=== PATIENT | female | born 1995 | race Hispanic/Latino ===

== ENCOUNTER → 2016-07-05 | Outpatient (CLI) | payer OTHER ==
--- NOTE | 2016-07-05 15:10 | REP ---
Obstetric ultrasound for anatomy: There is a single intrauterine gestation in a breech presentation. There is movement and cardiac activity. The heart rate is 173 beats per minute. The placenta is anterior without previa or abruptio and with grade 0 maturity. The amniotic fluid volume subjectively is normal. The cervix is 3.0 cm length. Maternal adnexa and cul-de-sac are unremarkable. By today's measurements gestational age is 23 weeks 1 day with an SHOSHANA of 10/31/2016. The gestational age by LMP is 23 weeks 4 days. weight is 577 grams (1 pound, 4 ounces). This is a 34th percentile for 23 weeks 4 days. The the following anatomic structures are identified and are unremarkable: Intracranial lateral ventricles, cerebellum, cisterna magna, facial profile, upper lip, lungs, four-chamber heart, cardiac right and left ventricular outflow tracts, diaphragm, stomach, cord insertion, three-vessel cord, kidneys, bladder, and upper lower extremities. The spine is suboptimally demonstrated. A followup study dedicated to the spine might be considered. Otherwise, no anomalies are identified. Signed by Ricco Mcbride MD 07/05/2016 03:01 P
== END ==
LOC: M RAD 13:21
PROVIDERS: ATTEND Nurse Practitioner Women's Health
DX: Z36 Encounter for antenatal screening of mother (principal); Z3A.23 23 weeks gestation of pregnancy

== ENCOUNTER 2016-10-21 10:09 | Outpatient (CLI) | payer OTHER ==
[~2016-10-21] VITALS: Ht 154.9 cm; Wt 67.0 kg
[2016-10-21 10:23] VITALS: BP 115/75
[2016-10-21] MEDS ORDERED: PRENTAB9 PO (10:52)
--- NOTE | 2016-10-21 14:29 | IPN ---
DATE OF SERVICE: 10/21/2016 21-year-old 1, para 0, LMP 01/22/2016, EDC 10/28/2016 at 39 weeks of gestation with questionable ruptured membranes. Labs show B+, HIV negative, Hep negative, RPR negative, rubella immune. Varicella immune. Urine negative. Gonorrhea and chlamydia negative. 1-hour glucose was 114 and GBS is negative. She has no risk factors. On examination, symphysis fundus height is 39, vertex category 1 strip, 15 x 15 contraction acceleration to be variable to moderate 6-25. No decelerations. Cervix is closed, posterior thinning at 50%. No loss of fluid or vaginal discharge. Evaluation by ferning was negative. BV was negative Yeast was negative and Nitrazine was negative. Blood pressure 115/75, respirations are 18, pulse is 69 and temperature is 98.6. Urine is 1.005, pH 6, negative, negative, negative. The rest of the examination is unremarkable. She is normocephalic, atraumatic. Neck: Full range of motion. Pupils equal and reactive to light. Chest is clear bilaterally to bases. No wheezes or rhonchi. No CVA tenderness. Nontender uterus. Four quadrant bowel sounds are noted and as mentioned category 1 strip. She has no rashes, lesions or pruritus. No arthralgia, myalgia. No complaints of cough, wheezes, shortness of breath or dyspnea on exertion. No chest pain. No bleeding. Neuro complete. No incontinence, urgency or frequency. No nausea, vomiting, diarrhea or constipation. No diabetic issues. She has no GYNE issues. Unremarkable past medical and surgical history and family history is noncontributory. She does not smoke or drink or abuse drugs. She is and there is no domestic violence. In summary, have a 39+ week of gestation with increasing leukorrhea, negative for spontaneous rupture of membranes. We gave her precautions regarding labor, premature rupture of membranes, bleeding and when to call her provider. The patient does have a followup in the office next week and was discharged undelivered.
== END 2016-10-21 11:45 | disposition home or self-care (01) ==
LOC: M LDO 10:09
PROVIDERS: ATTEND Obstetrics & Gynecology
DX: O47.1 False labor at or after 37 completed weeks of gestation (principal); Z3A.39 39 weeks gestation of pregnancy

== ENCOUNTER 2016-10-27 13:41 | Outpatient (CLI) | payer OTHER ==
[~2016-10-27] VITALS: Ht 154.9 cm; Wt 68.0 kg
[~2016-10-27 13:41] MED LIST: PRENTAB9 PO
[2016-10-27 13:53] VITALS: BP 133/65
== END 2016-10-27 14:58 | disposition home or self-care (01) ==
LOC: M LDO 13:41
PROVIDERS: ATTEND Obstetrics & Gynecology
DX: O47.1 False labor at or after 37 completed weeks of gestation (principal); Z3A.39 39 weeks gestation of pregnancy; R42 Dizziness and giddiness

== ENCOUNTER 2016-10-27 21:59 | Inpatient (IN) | payer OTHER ==
[~2016-10-27] VITALS: Ht 154.9 cm; Wt 67.0 kg
[2016-10-27 22:14] VITALS: BP 137/65
[2016-10-28] VITALS (25 sets, daily range): BP systolic 104–148; BP diastolic 52–89
[2016-10-28] MEDS ORDERED: LACTATED RINGER'S 1000 ML IV STA (00:46)
[2016-10-28] MEDS ORDERED: LR 1,000 ML IV SCH (00:46)
--- NOTE | 2016-10-28 01:03 | HPEPDOC ---
Obstetrical History & Physical General Date of Admission Oct 28, 2016 at 00:42 History of Present Illness 21 y/o at 40+0 seen about 2 hrs ago with a NST Cat 1 but cx 3 cm. was 2 earlier in the day. Now has walked and Cx is 5/90/-1, membranes intact small amt bloody show. Feeling FM still. 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 History: No pertinent history Past Medical History Medical History none Surgical History: [place] teeth Social History Marital Status: Family situation: Spouse/partner home Psychosocial History: No pertinent psych hx * Smoker: non-smoker Alcohol: Denies Drugs: denies Abuse Violence Screening Have you been hit/kicked/slapp: No Have you been sexually assault: No Imunizations Tdap status: current Influenza Status: current Allergies Coded Allergies: FISH (Verified Allergy, Intermediate, SWELLING, 10/21/16) CAN EAT TUNA AND SHRIMP WITHOUT REACTION Penicillins (Verified Allergy, Intermediate, SWELLING, 10/21/16) Medications Scheduled Multivitamins/ ( 27-0.8 mg) 1 Tab Tab, 1 TAB PO DAILY Physical Examination Physical Examination GENERAL: Alert and oriented times three. ABDOMEN: Gravid and non-tender to touch. FETUS: Vtx by SVE. Cx: 590/-1/vtx well applied, membranes intact EFW 3600 gm EXTREMITIES: No edema. No clonus. Vital Signs/I&O Vital Signs Date Time Temp Pulse Resp B/P (MAP) Pulse Ox O2 Delivery O2 Flow Rate FiO2 10/27/16 22:14 75 20 137/65 (89) Room Air Laboratory Data Urine Culture: No Growth Pertinent Laboratoy Data Blood Type: B+ RBC Antibody Screen: Negative HIV: Negative Hepatitis B: Negative Hepatitis C: Unknown Rapid Plasma Reagin: Nonreactive Rubella: Immune Varicella: Immune Chlamydia/Gonorrhea: Negative Group B Streptococcus: Negative Quad Screen Test: Declined Cystic Fibrosis: Negative Glucose Tolerance Test: 114 Anatomy Ultrasound Placenta Location: Anterior Normal Anatomy: Yes Vaginal Examination Dilation: 5 cm Effacement: 80+% Station: -1 Cervical Consistency: Soft Cervical Position: Anterior Presentation: Cephalic presentation Assessment Variability: Moderate Accelerations: Positive Decelerations: None Tocometer Contractions: Yes Frequency: regular Duration: less than 60 seconds, greater than 60 seconds Assessment/Plan Assessment Now with noted cx change after walking. Active labor. Desires epidural. GBS neg, HIV neg. Plan Admit and orient. Summer Intern and consent. Diet: clrs Group B Streptococcus (GBS) negative Labs and intravenous (IV) per unit protocol. Counseled on Pitocin and possible augmentation Lactated Ringers (LR): Bolus 1000 mL, then at 125 mL/hr. Anticipate normal spontaneous delivery () C-S as appropriate. Recheck in 2-3 hrs after IV, labs, epidural, consider AROM at that time if appropriate. Sessions SESSIONS,FERDINAND Nieves MD Oct 28, 2016 01:03
[2016-10-28] MEDS ORDERED: OXYTOCIN 30 UNITS IN 0.9% NaCl 500ML IV BAG (J2590) As Ordered ONE (01:17)
[2016-10-28] MEDS ORDERED: FENTANYL 2MCG/ML ROPIVACAINE 0.2% IN 0.9% NACL 200ML IVBAG As Ordered ONE (01:17)
[2016-10-28 01:42] LABS: MEAN CORPUSCULAR HEMOGLOBIN 29.7 pg (27.0-33.0); MEAN CORPUSCULAR VOLUME 87.5 fl (80.0-96.0); RED CELL DISTRIBUTION WIDTH 14.1 % (11.5-14.5); WHITE BLOOD COUNT 22.3 K/mm3 (4.0-10.0)
[2016-10-28] MEDS ORDERED: EPIDURAL/PCA KEYS XX PRN (02:24)
[2016-10-28] MEDS ORDERED: REFRIGERATOR IV KEYS XX PRN (02:24)
[2016-10-28] MEDS ORDERED: ONDANSETRON 4MG/2ML VIAL (J2405) IV PRN (02:24)
[2016-10-28] MEDS ORDERED: diphenhydrAMINE INJ 50MG/ML VIAL (J1200) IV PRN (02:24)
[2016-10-28] MEDS ORDERED: LACTATED RINGER'S 1000 ML IV PRN (02:24)
[2016-10-28] MEDS ORDERED: FENTANYL/ROPIVACAINE/NACL BAG 200 ML EPIDURAL SCH (02:24)
[2016-10-28] MEDS ORDERED: ePHEDrine SULFATE 25 MG/5 ML(5MG/ML) SYRINGE IV PRN (02:24)
[2016-10-28] MEDS ORDERED: EPIDURAL COMMENT XX SCH (02:24)
[2016-10-28] MEDS ORDERED: NALOXONE INJ 0.4 MG/1 ML VIAL (J2310) IV PRN (02:24)
--- NOTE | 2016-10-28 04:06 | IPNPDOC ---
Text Note Date of Service The patient was seen on 10/28/16. NOTE NST Cat 2, less variability than prior to epidural but reassuring, accels and mostly mod tanya. No decels since 1 hr ago. 3 min decel with justice placement. C /C/+2, well applied, start pushing. VS,Fishbone, I+O VS, Fishbone, I+O Laboratory Tests 10/28/16 01:37 Red Blood Count 3.86 L, Mean Corpuscular Volume 87.5, Mean Corpuscular Hemoglobin 29.7, Mean Corpuscular Hemoglobin Concent 34.0, Red Cell Distribution Width 14.1 Vital Signs Date Time Temp Pulse Resp B/P (MAP) Pulse Ox O2 Delivery O2 Flow Rate FiO2 10/28/16 03:10 75 16 113/53 (73) 10/28/16 02:53 99.5 10/27/16 22:14 Room Air SESSIONS,FERDINAND Nieves MD Oct 28, 2016 04:06
[2016-10-28] MEDS ORDERED: RHOGAM 300 MCG (1500 IU) INJ (J2790) IM SCH (06:30)
[2016-10-28] MEDS ORDERED: MEASLES,MUMPS,RUBELLA VACCINE INJ (MMR-II) (90707) SC SCH (06:30)
[2016-10-28] MEDS ORDERED: OXYTOCIN DRIP 30 UNITS in APPROPRIATE DILUENT 1 EA IV SCH (06:30)
[2016-10-28] MEDS ORDERED: DIBUCAINE 1% OINTMENT 30GM TOP PRN (06:30)
[2016-10-28] MEDS ORDERED: ACETAMINOPHEN TAB 650MG DOSE (2X325MG) PO PRN (06:30)
[2016-10-28] MEDS ORDERED: METOCLOPRAMIDE INJ 10MG/2ML VIAL (J2765) IV PRN (06:30)
--- NOTE | 2016-10-28 06:51 | DNPDOC ---
[facility] Delivery Note Delivery Note DATE OF DELIVERY: Oct 28, 2016 PREDELIVERY DIAGNOSIS: 40 0/7 weeks' gestation and labor. POST DELIVERY DIAGNOSIS: Delivered. PROCEDURE: Spontaneous vaginal delivery TEXTILE MACHINE OPERATOR: ANESTHESIA: natural ESTIMATED BLOOD LOSS: 400 mL. FINDINGS: 6 pound 10 ounce female , Score 9/9, 3010 gm DELIVERY SUMMARY: Called to room, good effort. No delay of the vtx or ant/post shoulders. To abd, good tone and spont cry. Cord C/C by FOB. Placenta intact with slight traction, fundal massage. Pit going, fundus firm. 2 Lacs to right vag sidewall and post vagina, no perineal lacs. Labial lac approximated with 3- 0 vicryl in standard fashion, post vag wall lac as well; good cosmesis/ hemostasis. Uncomplicated. Sessions MD MCCALL,FERDINAND Nieves MD Oct 28, 2016 06:51
[2016-10-28] MEDS: DOCUSATE SODIUM 100 MG CAP PO SCH ×2 (08:50→21:00)
[2016-10-28] MEDS: PRENATAL VITAMIN TAB PO SCH (08:50)
[2016-10-28] MEDS: IBUPROFEN 800 MG TAB PO PRN ×2 (08:51→17:02)
[2016-10-29] MEDS: IBUPROFEN 800 MG TAB PO PRN ×2 (03:14→15:37)
[2016-10-29 06:36] VITALS: BP 122/59
[2016-10-29] MEDS: DOCUSATE SODIUM 100 MG CAP PO SCH ×2 (07:47→20:27)
[2016-10-29] MEDS: PRENATAL VITAMIN TAB PO SCH (07:47)
[2016-10-29 17:58] VITALS: BP 130/63
[2016-10-30] MEDS: IBUPROFEN 800 MG TAB PO PRN (02:33)
[2016-10-30 06:00] VITALS: BP 127/67
--- NOTE | 2016-10-30 07:18 | DS.PDOC ---
Discharge Summary General Date of Admission Oct 28, 2016 at 00:42 Date of Discharge 30OCT2016 Discharge Summary PROCEDURES PERFORMED DURING STAY: spontaneous vaginal delivery after admission for active labor and ruptured membranes. DISCHARGE DIAGNOSES: 1. Healthy female infant HOSPITAL COURSE: Admitted for active labor and delivery. See delivery note. DISCHARGE MEDICATIONS: Motrin, Colace, Tylenol, Lanolin, desires condoms for PP control Physical exam: see note from this morning LABORATORY DATA: Please see below. ACTIVITY: as tolerated. Nothing in vagina for 6 weeks. DIET: regular DISPOSITION:stable TIME SPENT ON DISCHARGE: Greater than 15 minutes. Sessions Vital Signs/I&Os Vital Signs Date Time Temp Pulse Resp B/P (MAP) Pulse Ox O2 Delivery O2 Flow Rate FiO2 10/30/16 06:00 99.2 60 18 127/67 (87) 96 Room Air Discharge Medications Scheduled Multivitamins/ ( 27-0.8 mg) 1 Tab Tab, 1 TAB PO DAILY, (Reported ) Allergies Coded Allergies: FISH (Verified Allergy, Intermediate, SWELLING, 10/21/16) CAN EAT TUNA AND SHRIMP WITHOUT REACTION Penicillins (Verified Allergy, Intermediate, SWELLING, 10/21/16) SESSIONS,FERDINAND Nieves MD Oct 30, 2016 07:18
--- NOTE | 2016-10-30 07:20 | IPNPDOC ---
Text Note Date of Service The patient was seen on 10/30/16. NOTE PPD1 prog note States feeling well, no complaints. No heavy VB. Pain controlled. Voiding, ambulatory. Bonding well and breast feeding well. VSSAF CTAB RRR Ut at U-2, firm Ext no CCE a/p: Doing well. d/c this morning. To bonding if baby not released. Sessions VS,[place], I+O VSBronwyn, I+O Vital Signs Date Time Temp Pulse Resp B/P (MAP) Pulse Ox O2 Delivery O2 Flow Rate FiO2 10/30/16 06:00 99.2 60 18 127/67 (87) 96 Room Air SESSIONS,FERDINAND Nieves MD Oct 30, 2016 07:20
[2016-10-30] MEDS ORDERED: COLA100C3 PO (07:57)
[2016-10-30] MEDS ORDERED: ACET50TA PO (07:58)
[2016-10-30] MEDS ORDERED: IBUP-1114 PO (07:59)
[2016-10-30] MEDS: PRENATAL VITAMIN TAB PO SCH (08:56)
[2016-10-30] MEDS: DOCUSATE SODIUM 100 MG CAP PO SCH (08:56)
== END 2016-10-30 12:10 | disposition home or self-care (01) | DRG 775 ==
LOC: M LDO 21:59 → M LDI 10-28 00:42 → M OBS 10-28 07:47
PROVIDERS: ADMIT Obstetrics & Gynecology; ATTEND Obstetrics & Gynecology
PROC: 10E0XZZ Delivery of Products of Conception, External Approach (ICD-10-PCS; principal; 2016-10-28)
PROC: 0HQ9XZZ Repair Perineum Skin, External Approach (ICD-10-PCS; 2016-10-28)
DX: O48.0 Post-term pregnancy (principal); Z37.0 Single live birth; Z3A.40 40 weeks gestation of pregnancy; Z88.0 Allergy status to penicillin; Z91.013 Allergy to seafood; O70.0 First degree perineal laceration during delivery